=== PATIENT | female | born 1980 | race Caucasian/White ===

== ENCOUNTER 2018-05-10 12:25 | Inpatient (IN) | payer OTHER ==
[~2018-05-10] VITALS: Ht 167.6 cm; Wt 79.5 kg
[2018-05-10] MEDS ORDERED: ASPIRIN 81 MG CHEW PO STA (12:52)
--- NOTE | 2018-05-10 12:59 | EMERGENCY ROOM VISIT NOTE ---
History Report prepared by Ye: Kasi Aguilar Under the Supervision of: Dr. Shaka Gordon M.D. First contact with patient: 12:44 Chief Complaint: STROKE SYMPTOMS Stated Complaint: NUMB HANDS AND L SIDE OF FACE,DIF SPEAKING Nursing Triage Summary: left side of body went numb about noon. I was also having trouble finding my words. symptoms have since resolved. patient does have a hx of anxiety "that is not what is going on right now." patient denies any other symptoms currently History of Present Illness The patient is a 37 year old female who presents to the Emergency Room with complaints of left arm/face numbness and speech difficulty. The patient states at 11:45AM (x1 hour ago) she was at work when she developed left arm and facial numbness and tingling. She states she also had trouble with her speech stating it felt like she couldn't control or open her mouth. She states that during this she had no headache, CP, SOB, nausea/vomiting, or other concerns. She states that over the last x20 minutes she has noted the symptoms resolving stating she is 75% resolved and all she has now is slight numbness to the left side of her tongue and numbness by her left elbow. The patient notes she had similar complaints to this x1 month and 4 days ago (symptoms only lasted 10 minutes). The patient states she did recently change to a low-carb diet and denies any problems with sleeping. She denies any increases in stress. Source of History: patient Position: head, arm (left) Symptom Intensity: moderate Quality: tingling, numbness Timing: other (improving) Modifying Factors (Relieving): rest Associated Symptoms: No fevers, No chills, No headache, No diaphoresis, No chest pain, No SOB, No nausea, No vomiting Review of Systems See HPI for pertinent positives & negatives. A total of 10 systems reviewed and were otherwise negative. Constitutional: No fever, No chills Respiratory: No shortness of breath Cardiovascular: No chest pain Neurologic: + numbness/tingling Past Medical & Surgical Medical Problems: (1) Dental caries (2) Facial abscess (3) Stroke-like symptoms (4) Stroke-like symptoms Social History Smoking Status: Current Every Day Smoker Alcohol Use: occasionally Drug Use: none Occupation Status: employed Current/Historical Medications No Active Prescriptions or Reported Meds Allergies Coded Allergies: Shellfish (Verified Allergy, Severe, ANAPHYLAXIS, 05/10/18) Sulfa Antibiotics (Verified Allergy, Intermediate, Rash, 05/10/18) Physical Exam Vital Signs Date Time Temp Pulse Resp B/P (MAP) Pulse Ox O2 Delivery O2 Flow Rate FiO2 05/10/18 16:00 74 97 Room Air 05/10/18 15:30 67 106/71 96 Room Air 05/10/18 15:00 72 98 Room Air 05/10/18 14:43 88 16 100/70 97 Room Air 05/10/18 13:02 108 05/10/18 12:59 98 Room Air 05/10/18 12:44 93 20 108/63 97 Room Air 05/10/18 12:29 37.1 101 18 132/90 97 Room Air Physical Exam GENERAL: Somewhat anxious and tearful. HEENT: No acute trauma, normocephalic atraumatic, mucous membranes moist, no nasal congestion, no scleral icterus. NECK: No stridor, no adenopathy, no meningismus, trachea is midline. LUNGS: Clear to auscultation bilaterally, no wheeze, no rhonchi, breath sounds equal. HEART: Without murmurs gallops or rubs, regular rate and rhythm. ABDOMEN: Soft, nontender, bowel sounds positive, no hernias, no peritonitis. EXTREMITIES: No cyanosis or edema, full range of motion of all the joints without pain or difficulty, no signs for acute trauma. NEUROLOGIC: Oriented x 3, no acute motor or sensory deficits, no focal weakness. No cerebellar deficit or pronator drift. No speech slur or facial droop. SKIN: No rash, no jaundice, no diaphoresis. Medical Decision & Procedures ER Provider Diagnostic Interpretation: Radiology results as stated below per my review and radiologist interpretation: BRAIN COMBO FINDINGS: Lay Out Former localizer images demonstrate no gross abnormality. There is no restricted diffusion to suggest acute or subacute infarct. The midline structures including the corpus callosum, brainstem, optic chiasm, pituitary and pineal glands appear unremarkable the sagittal T1 series. No cerebellar tonsillar herniation. No acute intracranial hemorrhage, midline shift, abnormal extra- axial collections, hydrocephalus or intracranial mass. No significant parenchymal signal abnormalities. Major flow voids are patent. Orbits are symmetric and within normal limits. The mastoid air cells are clear. Mild mucoperiosteal thickening about the right maxillary sinus. The soft tissues and skull are unremarkable. There is no abnormal intra-axial or extra-axial enhancement. IMPRESSION: 1. No acute intracranial abnormality. 2. No acute infarction or abnormal enhancement. 3. Mild right maxillary sinus disease. HEAD WITHOUT CONTRAST (CT) FINDINGS: No acute intracranial hemorrhage, midline shift, intracranial mass, hydrocephalus, territorial ischemia or abnormal extra-axial collection.The calvarium is intact. The paranasal sinuses, mastoid air cells, and middle ear cavities are clear. IMPRESSION: No acute intracranial abnormality. Laboratory Results 05/10/18 13:05 Red Blood Count 4.22, Mean Corpuscular Volume 84.1, Mean Corpuscular Hemoglobin 29.4, Mean Corpuscular Hemoglobin Concent 34.9, Mean Platelet Volume 9.9, Neutrophils (%) (Auto) 63.8, Lymphocytes (%) (Auto) 25.1, Monocytes (%) (Auto) 7.9, Eosinophils (%) (Auto) 2.6, Basophils (%) (Auto) 0.4, Neutrophils # (Auto) 3.23, Lymphocytes # (Auto) 1.27, Monocytes # (Auto) 0.40, Eosinophils # (Auto) 0.13, Basophils # (Auto) 0.02 05/10/18 13:05 Test 05/10/18 12:52 05/10/18 13:05 05/10/18 15:16 Creatine Kinase MB Ratio (0-3.0) White Blood Count 5.06 K/uL (4.8-10.8) Red Blood Count 4.22 M/uL (4.2-5.4) Hemoglobin 12.4 g/dL (12.0-16.0) Hematocrit 35.5 % (37-47) Mean Corpuscular Volume 84.1 fL (80-100) Mean Corpuscular Hemoglobin 29.4 pg (25-34) Mean Corpuscular Hemoglobin Concent 34.9 g/dl (32-36) Platelet Count 204 K/uL (130-400) Mean Platelet Volume 9.9 fL (7.4-10.4) Neutrophils (%) (Auto) 63.8 % Lymphocytes (%) (Auto) 25.1 % Monocytes (%) (Auto) 7.9 % Eosinophils (%) (Auto) 2.6 % Basophils (%) (Auto) 0.4 % Neutrophils # (Auto) 3.23 K/uL (1.4-6.5) Lymphocytes # (Auto) 1.27 K/uL (1.2-3.4) Monocytes # (Auto) 0.40 K/uL (0.11-0.59) Eosinophils # (Auto) 0.13 K/uL (0-0.5) Basophils # (Auto) 0.02 K/uL (0-0.2) RDW Standard Deviation 43.5 fL (36.4-46.3) RDW Coefficient of Variation 14.3 % (11.5-14.5) Immature Granulocyte % (Auto) 0.2 % Immature Granulocyte # (Auto) 0.01 K/uL (0.00-0.02) Prothrombin Time 10.3 SECONDS (9.0-12.0) Prothromb Time International Ratio 1.0 (0.9-1.1) Activated Partial Thromboplast Time 25.5 SECONDS (21.0-31.0) Partial Thromboplastin Ratio 1.0 Anion Gap 11.0 mmol/L (3-11) Est Creatinine Clear Calc Drug Dose 107.5 ml/min Estimated GFR () 129.8 Estimated GFR (Non- 112.0 BUN/Creatinine Ratio 8.7 (10-20) Calcium Level 7.9 mg/dl (8.5-10.1) Magnesium Level 1.5 mg/dl (1.8-2.4) Creatine Kinase MB < 1.0 ng/ml (0.5-3.6) Troponin I < 0.015 ng/ml (0-0.045) Thyroid Stimulating Hormone (TSH) 0.973 uIu/ml (0.300-4.500) Human Chorionic Gonadotropin, Qual NEG (NEG) Vitamin B12 Level 654 pg/mL (211-911) Folate 12.42 ng/mL (>5.38) Medications Administered Medications (Trade) Dose Ordered Sig/Wm Route Start Time Stop Time Status Last Admin Dose Admin Aspirin (Aspirin Chew) 324 mg NOW STAT PO 05/10/18 12:52 05/10/18 12:57 DC 05/10/18 13:13 324 MG Magnesium Sulfate (Magnesium Sulfate 1gm / D5W) 2 gm NOW STAT IV 05/10/18 14:02 7/22/18 14:03 DC 05/10/18 14:43 2 GM Potassium Chloride (Klor-Con M10) 40 meq NOW STAT PO 05/10/18 14:02 05/10/18 14:03 DC 05/10/18 14:43 40 MEQ ECG Per My Interpretation Indication: other (left side numnbess) Rate (beats per minute): 76 Rhythm: normal sinus Findings: other (artifact present, no ST elevation, no PVCs) Medical Decision Ms. Escoto is a pleasant 37 year old female who reports to the ED today for left sided numbness and tingling x1 hour. During examination patient notes she is 75% improved with only mild numbness to her left elbow and tongue noted. Comprehensive neurological exam normal. Differential Diagnosis: TIA or CVA, Dysrhythmia, Electrolyte Imbalance, Thyroid Disorder, Intracranial Mass, MS, Intracranial Bleeding Orders: 1252: CBC w/ Differential, PTT, Prothormbin, Troponin, Test, EKG, CT Head, Neuro Check q15 minutes, Defensive Driving Instructor, Pulse Ox, Saline Lock, NPO, Partial Renal Profile, CKMB, Drug Profile, UA Clean Catch, TSH, Magnesium Level , ASA 325mg PO, MRI Brain Recheck: 1425: Patient is doing much better. She states she is 100% resolved and is asymptomatic There is no leukocytosis or worrisome anemia. No kidney failure. She does have a low potassium and her magnesium is low at 1.5. testing is negative. Brain CT shows no acute bleed or mass-effect. EKG shows a normal sinus rhythm, no acute ischemia. Cardiac enzyme testing 1 is not consistent with acute cardiac injury. Brain MRI does not show evidence for stroke, mass or MS. The patient appears to be in a euthyroid state. The patient was given oral aspirin. She received oral potassium and IV magnesium. The patient feels improved. Her neurologic exam is completely normal. Her symptoms have resolved. At this point, the cause for her presentation is unclear. This may have been a TIA, certainly a variant migraine is possible. Possibly, the low magnesium and potassium are responsible. Further workup is required. I spoke to the patient and case management. The on-call hospitalist was consulted. Medication Reconcilliation Current Medication List: was personally reviewed by me Blood Pressure Screening Patient's blood pressure: Normal blood pressure Consults Time Called: 0113 Consulting Physician: Dr. Weston ([facility] Hospitalist) Returned Call: [phone] Reviewed HPI, ROS, PE, and Results. Agrees to admit the patient. Impression Primary Impression: Stroke-like symptoms Additional Impressions: Left sided numbness Hypomagnesemia Hypokalemia Scribe Attestation The scribe's documentation has been prepared under my direction and personally reviewed by me in its entirety. I confirm that the note above accurately reflects all work, treatment, procedures, and medical decision making performed by me. Departure Information Dispostion Being Evaluated By Hospitalist Prescriptions No Active Prescriptions or Reported Meds Referrals Sania Goldsmith D.O. (PCP) Forms HOME CARE DOCUMENTATION FORM, IMPORTANT VISIT INFORMATION Patient Instructions My [facility] Stroke History Time Last Known Well 1 hour ago Stroke t-PA Criteria Reviewed Does NOT meet criteria for t-PA Reason t-PA Not Given Treatment not indicated Problem Qualifiers
[2018-05-10 13:28] LABS: BASO % 0.4 %; BASO ABS # 0.02 K/uL (0-0.2); EOS % 2.6 %; EOS ABS # 0.13 K/uL (0-0.5); HEMATOCRIT 35.5 % (37-47); HEMOGLOBIN 12.4 g/dL (12.0-16.0); IG# 0.01 K/uL (0.00-0.02); LYMPH % 25.1 %; LYMPH ABS # 1.27 K/uL (1.2-3.4); MEAN CELL VOLUME 84.1 fL (80-100); MEAN CORPUSCULAR HEMOGLOBIN 29.4 pg (25-34); MEAN CORPUSCULAR HGB CONC 34.9 g/dl (32-36); MEAN PLATELET VOLUME 9.9 fL (7.4-10.4); MONO % 7.9 %; NEUT % 63.8 %; NEUT ABS # 3.23 K/uL (1.4-6.5); PLATELET COUNT 204 K/uL (130-400); RED CELL DISTRIBUTION WIDTH CV 14.3 % (11.5-14.5); RED CELL DISTRIBUTION WIDTH SD 43.5 fL (36.4-46.3); WHITE BLOOD COUNT 5.06 K/uL (4.8-10.8)
--- NOTE | 2018-05-10 13:33 | DIAGNOSTIC IMAGING REPORT ---
HEAD WITHOUT CONTRAST (CT) CLINICAL HISTORY: 37 years-old Female with Stroke. Acute strokelike symptoms TECHNIQUE: Multiple axial CT images of the head were obtained without contrast. A dose lowering technique was utilized adhering to the principles of ALARA. CT DOSE: 638.56 mGycm COMPARISON: CT maxillofacial 10/01/2015. FINDINGS: No acute intracranial hemorrhage, midline shift, intracranial mass, hydrocephalus, territorial ischemia or abnormal extra-axial collection. The calvarium is intact. The paranasal sinuses, mastoid air cells, and middle ear cavities are clear. IMPRESSION: No acute intracranial abnormality. The above report was generated using voice recognition software. It may contain grammatical, syntax or spelling errors. Electronically signed by: Mack Sanderson M.D. 05/10/2018 1:32 PM Dictated Date/Time: 05/10/2018 1:31 PM
[2018-05-10 13:42] LABS: PTT PATIENT 25.5 SECONDS (21.0-31.0)
[2018-05-10 13:56] LABS: BLOOD UREA NITROGEN 6 mg/dl (7-18); CALCIUM 7.9 mg/dl (8.5-10.1); CARBON DIOXIDE 22 mmol/L (21-32); CKMB < 1.0 ng/ml (0.5-3.6); CREATININE 0.69 mg/dl (0.60-1.20); GLUCOSE 94 mg/dl (70-99); POTASSIUM 3.1 mmol/L (3.5-5.1); SODIUM 139 mmol/L (136-145)
[2018-05-10] MEDS ORDERED: GADAVIST IV PRN (14:00)
[2018-05-10] MEDS ORDERED: MAGNESIUM SULFATE 1GM / D5W 1 GM BAG IV STA (14:02)
[2018-05-10] MEDS ORDERED: POTASSIUM CHLORIDE 10 MEQ TABCR PO STA (14:02)
--- NOTE | 2018-05-10 14:28 | DIAGNOSTIC IMAGING REPORT ---
BRAIN COMBO HISTORY: 37 years-old Female stroke, tia symptoms, left sided acute strokelike symptoms with dysarthria and left-sided body numbness COMPARISON: CT head of same day TECHNIQUE: Multiplanar multisequence MRI the brain was obtained both with and without the use of 8 mL Gadavist FINDINGS: Head Custodian localizer images demonstrate no gross abnormality. There is no restricted diffusion to suggest acute or subacute infarct. The midline structures including the corpus callosum, brainstem, optic chiasm, pituitary and pineal glands appear unremarkable the sagittal T1 series. No cerebellar tonsillar herniation. No acute intracranial hemorrhage, midline shift, abnormal extra-axial collections, hydrocephalus or intracranial mass. No significant parenchymal signal abnormalities. Major flow voids are patent. Orbits are symmetric and within normal limits. The mastoid air cells are clear. Mild mucoperiosteal thickening about the right maxillary sinus. The soft tissues and skull are unremarkable. There is no abnormal intra-axial or extra-axial enhancement. IMPRESSION: 1. No acute intracranial abnormality. 2. No acute infarction or abnormal enhancement. 3. Mild right maxillary sinus disease. The above report was generated using voice recognition software. It may contain grammatical, syntax or spelling errors. Electronically signed by: Mack Sanderson M.D. 05/10/2018 2:26 PM Dictated Date/Time: 05/10/2018 2:23 PM
--- NOTE | 2018-05-10 15:56 | History and Physical ---
History & Physical Date & Time of Service: May 10, 2018 at 15:56 Chief Complaint: Numb Hands And L Side Of Face,Dif Speaking Primary Care Physician: Sania Goldsmith D.O. 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 Pt said that this morning she was at work when she developed left arm numbness and weakness with left facial numbness and tingling. She said that symptoms last about 20 minutes. She said that she had trouble to speak where she felt she had a hard time to feel or open her mouth. She said that by the time she got to the ER her symptoms were almost resolved. She said that she had the similar symptoms twice about 1 month ago and few days ago that lasted about 10 minutes. She denies any headache, blurry vision and dizziness during the episodes. She denies any history of migraine. Pt said that she had 3 miscarriages in the past and the most recent one was in November. Currently she said that she is back to her baseline with no chest pain , numbness, palpitation, dizziness, weakness, palpitation, dysuria and SOB. Past Medical/Surgical History Medical Problems: (1) Ankle pain (2) Dental abscess (3) Dental caries (4) Dental infection (5) Depression (6) Facial abscess (7) Facial cellulitis (8) Laceration of thumb, right (9) Pain, dental (10) Stroke-like symptoms (11) Stroke-like symptoms Social History Smoking Status: Current Every Day Smoker Drug Use: none Occupational Status: employed Allergies Coded Allergies: Shellfish (Verified Allergy, Severe, ANAPHYLAXIS, 05/10/18) Sulfa Antibiotics (Verified Allergy, Intermediate, Rash, 05/10/18) Home Medications No Active Prescriptions or Reported Meds Review of Systems Constitutional: + weakness, No fever, No chills Eyes: No eye pain, No discharge, No diplopia ENT: No hearing loss, No nasal symptoms, No sore throat Respiratory: No cough, No sputum, No shortness of breath Cardiovascular: No chest pain, No claudication, No palpitations Abdomen: No pain, No nausea, No vomiting Musculoskeletal: No calf pain Genitourinary - Female: No dysuria, No urinary urgency Neurologic: + weakness, + numbness/tingling, No memory loss, No vertigo Psychiatric: No substance abuse Endocrine: No fatigue Hematologic / Lymphatic: No abnormal bleeding/bruising Integumentary: No rash, No itch Physical Exam Vital Signs Date Time Temp Pulse Resp B/P (MAP) Pulse Ox O2 Delivery O2 Flow Rate FiO2 05/10/18 14:43 88 16 100/70 97 Room Air 05/10/18 13:02 108 05/10/18 12:59 98 Room Air 05/10/18 12:44 93 20 108/63 97 Room Air 05/10/18 12:29 37.1 101 18 132/90 97 Room Air General Appearance: WD/WN, no apparent distress Head: normocephalic, atraumatic Eyes: PERRL, EOMI, sclerae normal ENT: hearing grossly normal Neck: thyroid normal, no JVD, trachea midline Respiratory/Chest: lungs clear, normal breath sounds, no respiratory distress, no accessory muscle use Cardiovascular: regular rate, rhythm, no JVD Abdomen/GI: normal bowel sounds, non tender, soft Back: no CVA tenderness Extremities/Musculoskelatal: normal inspection, no calf tenderness 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/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: 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 tested, no motor/sensory deficits, alert, oriented x 3 Skin: warm/dry, no rash Diagnostics Laboratory Results Results Past 24 Hours Test 05/10/18 12:52 05/10/18 13:05 05/10/18 15:16 Range/Units Creatine Kinase MB Ratio 0-3.0 White Blood Count 5.06 4.8-10.8 K/uL Red Blood Count 4.22 4.2-5.4 M/uL Hemoglobin 12.4 12.0-16.0 g/dL Hematocrit 35.5 37-47 % Mean Corpuscular Volume 84.1 80-100 fL Mean Corpuscular Hemoglobin 29.4 25-34 pg Mean Corpuscular Hemoglobin Concent 34.9 32-36 g/dl Platelet Count 204 130-400 K/uL Mean Platelet Volume 9.9 7.4-10.4 fL Neutrophils (%) (Auto) 63.8 % Lymphocytes (%) (Auto) 25.1 % Monocytes (%) (Auto) 7.9 % Eosinophils (%) (Auto) 2.6 % Basophils (%) (Auto) 0.4 % Neutrophils # (Auto) 3.23 1.4-6.5 K/uL Lymphocytes # (Auto) 1.27 1.2-3.4 K/uL Monocytes # (Auto) 0.40 0.11-0.59 K/uL Eosinophils # (Auto) 0.13 0-0.5 K/uL Basophils # (Auto) 0.02 0-0.2 K/uL RDW Standard Deviation 43.5 36.4-46.3 fL RDW Coefficient of Variation 14.3 11.5-14.5 % Immature Granulocyte % (Auto) 0.2 % Immature Granulocyte # (Auto) 0.01 0.00-0.02 K/uL Prothrombin Time 10.3 9.0-12.0 SECONDS Prothromb Time International Ratio 1.0 0.9-1.1 Activated Partial Thromboplast Time 25.5 21.0-31.0 SECONDS Partial Thromboplastin Ratio 1.0 Sodium Level 139 136-145 mmol/L Potassium Level 3.1 3.5-5.1 mmol/L Chloride Level 106 98-107 mmol/L Carbon Dioxide Level 22 21-32 mmol/L Anion Gap 11.0 3-11 mmol/L Blood Urea Nitrogen 6 7-18 mg/dl Creatinine 0.69 0.60-1.20 mg/dl Est Creatinine Clear Calc Drug Dose 107.5 ml/min Estimated GFR () 129.8 Estimated GFR (Non- 112.0 BUN/Creatinine Ratio 8.7 10-20 Random Glucose 94 70-99 mg/dl Calcium Level 7.9 8.5-10.1 mg/dl Magnesium Level 1.5 1.8-2.4 mg/dl Creatine Kinase MB < 1.0 0.5-3.6 ng/ml Troponin I < 0.015 0-0.045 ng/ml Thyroid Stimulating Hormone (TSH) 0.973 0.300-4.500 uIu/ml Human Chorionic Gonadotropin, Qual NEG NEG Diagnostic Radiology BRAIN COMBO HISTORY: 37 years-old Female stroke, tia symptoms, left sided acute strokelike symptoms with dysarthria and left-sided body numbness COMPARISON: CT head of same day TECHNIQUE: Multiplanar multisequence MRI the brain was obtained both with and without the use of 8 mL Gadavist FINDINGS: Picture Hanger localizer images demonstrate no gross abnormality. There is no restricted diffusion to suggest acute or subacute infarct. The midline structures including the corpus callosum, brainstem, optic chiasm, pituitary and pineal glands appear unremarkable the sagittal T1 series. No cerebellar tonsillar herniation. No acute intracranial hemorrhage, midline shift, abnormal extra-axial collections, hydrocephalus or intracranial mass. No significant parenchymal signal abnormalities. Major flow voids are patent. Orbits are symmetric and within normal limits. The mastoid air cells are clear. Mild mucoperiosteal thickening about the right maxillary sinus. The soft tissues and skull are unremarkable. There is no abnormal intra-axial or extra-axial enhancement. IMPRESSION: 1. No acute intracranial abnormality. 2. No acute infarction or abnormal enhancement. 3. Mild right maxillary sinus disease. The above report was generated using voice recognition software. It may contain grammatical, syntax or spelling errors. Electronically signed by: Mack Sanderson M.D. 05/10/2018 2:26 PM Dictated Date/Time: 05/10/2018 2:23 PM HEAD WITHOUT CONTRAST (CT) CLINICAL HISTORY: 37 years-old Female with Stroke. Acute strokelike symptoms TECHNIQUE: Multiple axial CT images of the head were obtained without contrast. A dose lowering technique was utilized adhering to the principles of ALARA. CT DOSE: 638.56 mGycm COMPARISON: CT maxillofacial 10/01/2015. FINDINGS: No acute intracranial hemorrhage, midline shift, intracranial mass, hydrocephalus, territorial ischemia or abnormal extra-axial collection. The calvarium is intact. The paranasal sinuses, mastoid air cells, and middle ear cavities are clear. IMPRESSION: No acute intracranial abnormality. The above report was generated using voice recognition software. It may contain grammatical, syntax or spelling errors. Electronically signed by: Mack Sanderson M.D. 05/10/2018 1:32 PM Dictated Date/Time: 05/10/2018 1:31 PM Impression Assessment and Plan Stroke Like symptoms Present with Left arm numbness/weakness with left facial numbness associated with difficulty to speech CT head showed no acute intracranial abnormality MRI head showed no intracranial abnormality Received aspirin in the ER, will continue aspirin Will check b12, folate, RPR, lyme titer, lupus anticoagulant Will get carotid doppler u/s Neurology consult Will monitor in tele Multiple Miscarriages Follow with OB Will check antiphospholipid Tobacco abuse Counseling on smoking cessation Electrolytes Imbalance Mg and K replaced Monitor electrolytes DVT Px Pt ambulates CODE STATUS FULL CODE Resuscitation Status VTE Prophylaxis Will order VTE Prophylaxis: No Reason for no VTE drug order: Treatment not indicated (Pt ambulates) Reason no Mechanical VTE Order: Treatment not indicated (pt ambulates)
[2018-05-10] MEDS ORDERED: PHARMACIST DISCHARGE MED REC CONSULT PRN (16:00)
[2018-05-10] MEDS ORDERED: IV FLUIDS COMPLETED PRN (16:00)
[2018-05-10 17:00] VITALS: BP 110/78; PULSE 62; TEMP 37.5; O2SAT 97; Ht 167.6 cm; Wt 79.5 kg
[2018-05-10] MEDS ORDERED: SODIUM CHLORIDE 0.9% 1000ML 1,000 ML IV SCH (17:15)
--- NOTE | 2018-05-10 17:57 | DIAGNOSTIC IMAGING REPORT ---
BILATERAL CAROTID DOPPLER STUDY HISTORY: Stroke like symptoms COMPARISON: None. TECHNIQUE: Real-time, grayscale, and color Doppler sonography of the carotid arteries was performed. Imaging reviewed in the transverse and longitudinal planes. All measurements were calculated based on NASCET criteria. FINDINGS: Antegrade flow is seen in the bilateral vertebral arteries. The brachial pressures are hemodynamically similar. No significant atherosclerotic plaque. The peak systolic velocity within the right ICA is 92 cm/s. The right systolic ratio is 1. The peak systolic velocity within the left ICA is 68 cm/s. The left systolic ratio is 0.6. IMPRESSION: No hemodynamically significant stenosis seen within the carotid arteries. Electronically signed by: Brandon Duran M.D. 05/10/2018 5:55 PM Dictated Date/Time: 05/10/2018 5:55 PM
[2018-05-10 19:17] VITALS: BP 96/66; PULSE 74; TEMP 36.6; O2SAT 97
[2018-05-10 23:38] VITALS: BP 101/70; PULSE 71; TEMP 36.7; O2SAT 95
[2018-05-11] MEDS ORDERED: TRAMADOL HCL 50 MG TAB PO PRN (00:15)
[2018-05-11] MEDS ORDERED: ACETAMINOPHEN 325 MG TAB PO PRN (00:15)
[2018-05-11] MEDS ORDERED: ACETAMINOPHEN 325 MG TAB ONE (00:38)
[2018-05-11 03:38] VITALS: BP 94/61; PULSE 70; TEMP 36.6; O2SAT 96
[2018-05-11 07:45] VITALS: BP 99/68; PULSE 60; TEMP 36.5; O2SAT 96
[2018-05-11 09:15] LABS: HEMOGLOBIN A1C 4.6 % (4.5-5.6)
[2018-05-11 09:22] LABS: RAPID PLASMA REAGIN NONREACTIVE (NONREACT)
[2018-05-11] MEDS: ASPIRIN 81 MG ECTAB PO SCH (09:33)
[2018-05-11 12:02] VITALS: BP 93/64; PULSE 78; TEMP 36.9; O2SAT 96
--- NOTE | 2018-05-11 14:41 | Neurology Consultation ---
Neurology Consultation Date of Consultation: May 11, 2018. Attending Physician: Pelon Weston M.D. Primary Care Physician: Sania Goldsmith D.O. Reason for Consultation: stroke like symptoms History of Present Illness Source: patient, partner Christa is a 37 year old female PMH of multiple Miscarriages, present with left facial numbness dyphasia and numbness and tingling in her hands left > right. She was at work when she developed facial numbness and tingling and then into her hands. She said that symptoms last about 20 minutes. She could speak but she thought the word pronunciation was off. . She said that by the time she got to the ER her symptoms were almost resolved. She said that she had the similar symptoms twice about 1 month ago and few days ago that lasted about 10 minutes. She states she has had a right sided headache which she never has. She does not think this is anxiety related because she has had anxiety in the past and this is different. She states she has not been under any increased stress although she was crying when first being questioned. She had he last miscarriage in October and is still having bleeding from the miscarriage. She was not on aspirin prior to the event. She does not have a history of migraines. denies CP, SOB, abdominal pain, weakness, bowel or bladder issues, vision changes, swallowing issues, N, V. currently all symptoms have resolved. Past Medical/Surgical History Medical Problems: (1) Ankle pain Status: Acute (2) Dental abscess Status: Acute (3) Dental infection Status: Acute (4) Facial cellulitis Status: Acute (5) Hypokalemia Status: Acute (6) Hypomagnesemia Status: Acute (7) Laceration of thumb, right Status: Acute (8) Left sided numbness Status: Acute (9) Stroke-like symptoms Status: Acute Social History Smoking Status: Current every day smoker Smokeless Tobacco Use: No Drug Use: none Occupation Status: employed Allergies Coded Allergies: Shellfish (Verified Allergy, Severe, ANAPHYLAXIS, 05/10/18) Sulfa Antibiotics (Verified Allergy, Intermediate, Rash, 05/10/18) Current Inpatient Medications Current Inpatient Medications Medications (Trade) Dose Ordered Sig/Wm Route Start Time Stop Time Status Last Admin Dose Admin Gadobutrol (Gadavist) 8 mmol UD PRN IV 05/10/18 14:00 05/14/18 13:59 Miscellaneous Information (Pharmacist Discharge Med Rec Consult) 1 ea UD PRN N/A 05/10/18 16:00 06/09/18 15:59 Miscellaneous (Iv Fluids Completed) 1 ea PRN PRN N/A 05/10/18 16:00 05/10/19 15:59 Aspirin (Ecotrin Tab) 81 mg QAM PO 05/11/18 09:00 06/10/18 08:59 05/11/18 09:33 81 MG Acetaminophen (Tylenol Tab) 650 mg Q6H PRN PO 05/11/18 00:15 06/10/18 00:14 05/11/18 11:25 650 MG Tramadol HCl (Ultram Tab) 25 mg Q6H PRN PO 05/11/18 00:15 06/10/18 00:14 Physical Exam Vital Signs (Past 24 Hrs): Date Time Temp Pulse Resp B/P (MAP) Pulse Ox O2 Delivery O2 Flow Rate FiO2 05/11/18 12:02 36.9 78 18 93/64 (74) 96 Room Air 05/11/18 08:00 Room Air 05/11/18 07:45 36.5 60 16 99/68 (78) 96 Room Air 05/11/18 03:38 36.6 70 18 94/61 (72) 96 Room Air 05/10/18 23:59 Room Air 05/10/18 23:38 36.7 71 18 101/70 (80) 95 Room Air 05/10/18 19:17 36.6 74 18 96/66 (76) 97 05/10/18 17:00 37.5 62 16 110/78 97 Room Air 05/10/18 16:00 74 97 Room Air 05/10/18 15:30 67 106/71 96 Room Air 05/10/18 15:00 72 98 Room Air 05/10/18 14:43 88 16 100/70 97 Room Air Physical Exam: Constitutional: appearance nourished, healthy and normal Ears, Nose, Mouth and Throat: mucous membranes moist, no injection and skin normal, eyes normal Cardiovascular: normal S-1 and S-2 and regular rate and rhythm Respiratory: course breath sounds Musculoskeletal: no peripheral edema and good distal pulses Skin: no stigmata of neurocutaneous disease noted and normal and intact Eyes: extraocular muscles intact (EOMI) and pupils equal, round and reactive to light (PERRL) NEUROLOGIC EXAMINATION: Mental status: Alert and interactive Oriented to full date and location Oriented to person Speech fluent with no evidence of aphasia Cranial Nerves smile eye brow raise symmetric Reflexes: Deep tendon reflexes were symmetrical and graded 2/5. Plantar responses were flexor. Sensory: intact to light touch and vibration Coordination: Romberg absent Gait/Stance: Posture normal. Gait normal: with steady with steps, base, turning, tandem gait. Motor: Negative for pronator drift of out stretched arms with eyes closed. Strength: biceps triceps hand clinical data coordinator bilaterally 5/5, hip flex patellar and plantar flex ext 5/5 bilaterally Laboratory Results Past 24 Hours: Test 05/10/18 15:16 05/11/18 01:30 05/11/18 07:17 Vitamin B12 Level 654 pg/mL (211-911) Folate 12.42 ng/mL (>5.38) Rapid Plasma Reagin NONREACTIVE (NONREACT) Lyme Disease IgG Antibody NEG (NEG) Lyme Disease IgM Antibody NEG (NEG) Urine Color YELLOW Urine Appearance CLEAR (CLEAR) Urine pH 8.0 (4.5-7.5) Urine Specific [place] 1.007 (1.000-1.030) Urine Protein NEG (NEG) Urine Glucose (UA) NEG (NEG) Urine Ketones NEG (NEG) Urine Occult Blood NEG (NEG) Urine Nitrite NEG (NEG) Urine Bilirubin NEG (NEG) Urine Urobilinogen NEG (NEG) Urine Leukocyte Esterase NEG (NEG) Urine Opiates Screen NEG (NEG) Urine Methadone, Qualitative NEG (NEG) Urine Barbiturates NEG (NEG) Urine Phencyclidine (PCP) Level NEG (NEG) Ur Amphetamine/Methamphetamine NEG (NEG) MDMA (Ecstasy) Screen NEG (NEG) Urine Benzodiazepines Screen NEG (NEG) Urine Cocaine Metabolite NEG (NEG) Urine Marijuana (THC) NEG (NEG) Estimated Average Glucose 85 mg/dl Hemoglobin A1c 4.6 % (4.5-5.6) Magnesium Level 2.2 mg/dl (1.8-2.4) Triglycerides Level 105 mg/dl (0-150) Cholesterol Level 128 mg/dl (0-200) HDL Cholesterol 48 mg/dl LDL Cholesterol, Calculated 59 mg/dl VLDL Cholesterol, Calculated 21 mg/dl Cholesterol/HDL Ratio 2.[address] head- No acute intracranial abnormality. MRI combo- . No acute intracranial abnormality. No acute infarction or abnormal enhancement. Mild right maxillary sinus disease. carotid doppler- No hemodynamically significant stenosis seen within the carotid arteries. Impression 37 year old female with left facial numbness and tingling, bilateral hand numbness and tingling - resolved Plan 1. continue aspirin 81 mg at plavix 75 mg x 3 months then aspirin for life 2. headache - continue tylenol at this time 3. hypercoag state is pending - 3 miscarriages 4. MRI with no acute findings 5. carotid doppler - no significant stenosis 6. PT/OT for any discharge needs 7. smoking cessation - strongly urged 8. TTE- ordered 9. DL, DM, HTN - optimize LDL <70 10 CTA head and neck- order further recommendations to follow I have seen and discussed above patient with Dr Rosa Mejias, neurology Pt with recent miscarriage (hx 2 prior) with focal neurologic sx x 2 not associated with headache. Possible TIA. P CTA head and neck, TTE with bubble, Dual antiplt tx, Will likely need to see maternal - medicine as outpt re mult miscarriages and recent poss TIA for question abt potential future pregnancies and need for anticoagulant, antiplt tx at that time. Pt will need follow-up with us as outpt. ALINA Mejias MD
[2018-05-11 15:06] VITALS: BP 100/67; PULSE 73; TEMP 36.9; O2SAT 98
--- NOTE | 2018-05-11 15:16 | Progress Note ---
Medicine Progress Note Date & Time of Visit: May 11, 2018 at 15:04. Subjective Pt was seen and examined Lying in bed with no distress Pt said that she feels fine She said that she had a headache this morning She denies any weakness, numbness, chest pain and palpitation Objective Last 8 Hrs Date Time Temp Pulse Resp B/P (MAP) Pulse Ox O2 Delivery O2 Flow Rate FiO2 05/11/18 12:02 36.9 78 18 93/64 (74) 96 Room Air 05/11/18 08:00 Room Air 05/11/18 07:45 36.5 60 16 99/68 (78) 96 Room Air Physical Exam: General- No acute distress Head- atraumatic Eyes- PERRL, EOMI ENT- oropharynx clear Neck- supple, no JVD Lungs- clear to auscultation Heart- regular rhythm; no murmur Abdomen- normal bowel sounds, soft Extremities- no pretibial edema, no calf tenderness Neuro- alert, oriented x 3; PERRL, EOMI; no facial palsy; no dysarthria; motor 5 /5 bilaterally, finger to nose normal Skin- warm & dry Laboratory Results: Last 24 Hours Test 05/10/18 15:16 05/11/18 01:30 05/11/18 07:17 Vitamin B12 Level 654 pg/mL Folate 12.42 ng/mL Rapid Plasma Reagin NONREACTIVE Lyme Disease IgG Antibody NEG Lyme Disease IgM Antibody NEG Urine Color YELLOW Urine Appearance CLEAR Urine pH 8.0 Urine Specific [place] 1.007 Urine Protein NEG Urine Glucose (UA) NEG Urine Ketones NEG Urine Occult Blood NEG Urine Nitrite NEG Urine Bilirubin NEG Urine Urobilinogen NEG Urine Leukocyte Esterase NEG Urine Opiates Screen NEG Urine Methadone, Qualitative NEG Urine Barbiturates NEG Urine Phencyclidine (PCP) Level NEG Ur Amphetamine/Methamphetamine NEG MDMA (Ecstasy) Screen NEG Urine Benzodiazepines Screen NEG Urine Cocaine Metabolite NEG Urine Marijuana (THC) NEG Estimated Average Glucose 85 mg/dl Hemoglobin A1c 4.6 % Magnesium Level 2.2 mg/dl Triglycerides Level 105 mg/dl Cholesterol Level 128 mg/dl HDL Cholesterol 48 mg/dl LDL Cholesterol, Calculated 59 mg/dl VLDL Cholesterol, Calculated 21 mg/dl Cholesterol/HDL Ratio 2.7 Assessment & Plan Stroke Like symptoms Present with Left arm numbness/weakness with left facial numbness associated with difficulty to speech CT head showed no acute intracranial abnormality MRI head showed no intracranial abnormality Carotid u/s showed no significant stenosis seen within the carotid arteries. Received aspirin in the ER, will continue aspirin B12, folate, TSH, RPR, Lyme titer normal Lupus anticoagulant and Homocysteine marker pending No arrhythmia on tele monitor Neurology on board Case discussed with Neurology recommended to get a CTA head and Neck Will get an Echo Multiple Miscarriages Follow with OB antiphospholipid pending Tobacco abuse Counseling on smoking cessation Electrolytes Imbalance stable Monitor electrolytes DVT Px Pt ambulates CODE STATUS FULL CODE Disposition Will discharge home once stable from neurology standpoint Follow up with primary care provider Dr. Collazo (Dr. Goldsmith colleague) on 05/15 @ 12:45 in [place] Follow up with Neurology Consultants: Neuro Current Inpatient Medications: Current Inpatient Medications Medications (Trade) Dose Ordered Sig/Wm Route Start Time Stop Time Status Last Admin Dose Admin Gadobutrol (Gadavist) 8 mmol UD PRN IV 05/10/18 14:00 05/14/18 13:59 Miscellaneous Information (Pharmacist Discharge Med Rec Consult) 1 ea UD PRN N/A 05/10/18 16:00 06/09/18 15:59 Miscellaneous (Iv Fluids Completed) 1 ea PRN PRN N/A 05/10/18 16:00 05/10/19 15:59 Aspirin (Ecotrin Tab) 81 mg QAM PO 05/11/18 09:00 06/10/18 08:59 05/11/18 09:33 81 MG Acetaminophen (Tylenol Tab) 650 mg Q6H PRN PO 05/11/18 00:15 06/10/18 00:14 05/11/18 11:25 650 MG Tramadol HCl (Ultram Tab) 25 mg Q6H PRN PO 05/11/18 00:15 06/10/18 00:14
[2018-05-11] MEDS ORDERED: CLOPIDOGREL BISULFATE 75 MG TAB PO ONE (16:30)
[2018-05-11] MEDS ORDERED: OPTIRAY 320 IV PRN (16:30)
[2018-05-11 19:11] VITALS: BP 97/65; PULSE 69; TEMP 36.9; O2SAT 98
--- NOTE | 2018-05-11 20:11 | DIAGNOSTIC IMAGING REPORT ---
ANGIOGRAPHY HEAD COMBO HISTORY: Mental status change TECHNIQUE: Multiaxial CT images of the head were performed both before and after the intravenous administration of contrast to evaluate the major cerebral vessels. Maximum intensity projection images were also obtained. A dose lowering technique was utilized adhering to the principles of ALARA. COMPARISON: None. FINDINGS: There is no mass, hematoma, midline shift, or acute infarct. Visualized intracranial internal carotid arteries, distal vertebral arteries, and basilar artery are widely patent. There is no significant stenosis, occlusion, or aneurysm seen within the bilateral ACAs, MCAs, or level vial grinder. IMPRESSION: No significant stenosis, occlusion, or aneurysm within the [place]. The above report was generated using voice recognition software. It may contain grammatical, syntax or spelling errors. Electronically signed by: Jac Denney M.D. 05/11/2018 8:00 PM Dictated Date/Time: 05/11/2018 7:54 PM
--- NOTE | 2018-05-11 20:11 | DIAGNOSTIC IMAGING REPORT ---
NECK ANGIO WITH CONTRAST HISTORY: Stroke TECHNIQUE: Multiaxial CT images of the neck were performed following the intravenous administration of contrast to evaluate the major cervical vessels. Maximum intensity projection images were also obtained. All measurements were calculated based on NASCET criteria. A dose lowering technique was utilized adhering to the principles of ALARA. COMPARISON STUDY: None. FINDINGS: The aortic arch and proximal great vessels are widely patent. There is no significant stenosis, occlusion, or dissection identified within the bilateral common carotid, internal carotid, or vertebral arteries. IMPRESSION: No significant stenosis, occlusion, or dissection identified within the carotid or vertebral arteries. The above report was generated using voice recognition software. It may contain grammatical, syntax or spelling errors. Electronically signed by: Jac Denney M.D. 05/11/2018 8:04 PM Dictated Date/Time: 05/11/2018 8:00 PM
[2018-05-11 23:43] VITALS: BP 107/73; PULSE 72; TEMP 36.5; O2SAT 97
[2018-05-12 03:48] VITALS: BP 99/67; PULSE 66; TEMP 36.5; O2SAT 95
[2018-05-12 07:10] VITALS: BP 139/76; PULSE 61; TEMP 36.6; O2SAT 98
[2018-05-12 08:00] VITALS: O2SAT 99
[2018-05-12] MEDS: ASPIRIN 81 MG ECTAB PO SCH (08:06)
[2018-05-12] MEDS ORDERED: CLOPIDOGREL BISULFATE 75 MG TAB PO SCH (09:00)
--- NOTE | 2018-05-12 09:20 | ECHOCARDIOGRAM REPORT ---
*NOTICE TO RECEIVING [employer] This information is strictly Confidential and protected under [place] law. [place] law prohibits you from making any further disclosure of this information unless further disclosure is expressly permitted by the written consent of the person to whom it pertains or is authorized by law. A general authorization for the release of medical or other information is not sufficient for this purpose. Hospital accepts no responsibility if the information is made available to any other person, INCLUDING THE PATIENT. Interpretation Summary * Name: NEREIDA HARRIS Study Date: 05/12/2018 07:15 AM BP: 99/67 mmHg * Patient Location: 2\S\S241\S\1 HR: 69 * : 1980 (M/d/yyyy) Gender: Female Height: 61 in * Age: 37 yrs Ethnicity: [place] Weight: 175 lb * Ordering Physician: Rosa Mccormick * Referring Physician: Self, Referred * Performed By: Erendira Obando RCS * * Reason For Study: CEREBRAL ISCHEMIA / EMBOLUS * BSA: 1.8 m2 * -- Conclusions -- * Injection of contrast documented no interatrial shunt. * The interatrial septum is intact with no evidence for an atrial septal defect. * The left atrial size is normal. * Right atrial size is normal. * The left ventricle is normal in size. * Left ventricular systolic function is normal. * Ejection Fraction = 55-60%. * The right ventricular systolic function is normal. Procedure Details * A complete two-dimensional transthoracic echocardiogram was performed (2D, M-mode, Doppler and color flow Doppler). * A saline contrast injection was performed to assess for cardiac shunting. * The injection was performed through an intravenous line in the right arm. * The attending nurse who injected the saline contrast was SYEDA MELGAR, RN. * A total of 10 cc of agitated saline was given. Left Ventricle * The left ventricle is normal in size. * There is normal left ventricular wall thickness. * Left ventricular systolic function is normal. * Ejection Fraction = 55-60%. Right Ventricle * The right ventricle is grossly normal size. * The right ventricular systolic function is normal. Atria * The left atrial size is normal. * Right atrial size is normal. * Injection of contrast documented no interatrial shunt. * The interatrial septum is intact with no evidence for an atrial septal defect. Mitral Valve * The mitral valve anatomy is normal. * Significant mitral regurgitation is absent. Tricuspid Valve * The tricuspid valve anatomy is normal. * Significant tricuspid regurgitation is absent. Aortic Valve * The aortic valve is tricuspid. The leaflet thickness if normal. There is no aortic stenosis, and no significant insufficiency. * No hemodynamically significant valvular aortic stenosis. * There is no significant aortic regurgitation. Pulmonic Valve * The pulmonic valve is not well seen, but is grossly normal. * There is no significant pulmonary regurgitation. Great Vessels * The aortic root is not well visualized. Pericardium/Pleural * There is no pericardial effusion. MMode 2D Measurements and Calculations IVSd 1.2 cm IVSs 1.4 cm LVIDd 3.6 cm LVIDs 2.4 cm LVPWd 0.95 cm LVPWs 1.2 cm IVS/LVPW 1.2 FS 32.8 % EDV(Teich) 53.6 ml ESV(Teich) 20.3 ml EF(Teich) 62.2 % EDV(cubed) 45.8 ml ESV(cubed) 13.9 ml EF(cubed) 69.6 % % IVS thick 19.6 % % LVPW thick 29.8 % LV mass(C)d 115.8 grams LV mass(C)dI 64.9 grams/m\S\2 LV mass(C)s 94.9 grams LV mass(C)sI 53.2 grams/m\S\2 SV(Teich) 33.3 ml SI(Teich) 18.7 ml/m\S\2 SV(cubed) 31.9 ml SI(cubed) 17.9 ml/m\S\2 Ao root diam 2.4 cm Ao root area 4.6 cm\S\2 LA dimension 3.1 cm LA/Ao 1.3 LVOT diam 2.0 cm LVOT area 3.2 cm\S\2 LVAd ap4 31.3 cm\S\2 LVLd ap4 8.0 cm EDV(MOD-sp4) 98.1 ml EDV(sp4-el) 103.6 ml LVAs ap4 20.0 cm\S\2 LVLs ap4 6.8 cm ESV(MOD-sp4) 48.1 ml ESV(sp4-el) 49.7 ml EF(MOD-sp4) 50.9 % EF(sp4-el) 52.0 % LVAd ap2 31.9 cm\S\2 LVLd ap2 8.5 cm EDV(MOD-sp2) 98.0 ml EDV(sp2-el) 101.8 ml LVAs ap2 19.2 cm\S\2 LVLs ap2 7.0 cm ESV(MOD-sp2) 42.0 ml ESV(sp2-el) 44.5 ml EF(MOD-sp2) 57.2 % EF(sp2-el) 56.3 % LVLd %diff 5.3 % EDV(MOD-bp) 100.7 ml LVLs %diff 3.2 % ESV(MOD-bp) 45.8 ml EF(MOD-bp) 54.5 % SV(MOD-sp4) 49.9 ml SI(MOD-sp4) 28.0 ml/m\S\2 SV(MOD-sp2) 56.0 ml SI(MOD-sp2) 31.4 ml/m\S\2 SV(MOD-bp) 54.9 ml SI(MOD-bp) 30.8 ml/m\S\2 SV(sp4-el) 53.9 ml SI(sp4-el) 30.2 ml/m\S\2 SV(sp2-el) 57.3 ml SI(sp2-el) 32.1 ml/m\S\2 Doppler Measurements and Calculations MV E max [place] 92.2 cm/sec MV A max [place] 51.2 cm/sec MV E/A 1.8 MV P1/2t max [place] 100.6 cm/sec MV P1/2t 82.2 msec MVA(P1/2t) 2.7 cm\S\2 MV dec slope 358.2 cm/sec\S\2 MV dec time 0.24 sec Ao V2 max 109.1 cm/sec Ao max PG 4.8 mmHg Ao max PG (full) 10 mmHg MICHI(V,A) 2.8 cm\S\2 MICHI(V,D) 2.8 cm\S\2 LV V1 max PG 3.8 mmHg LV V1 max 97.1 cm/sec
[2018-05-12 10:56] VITALS: BP 92/60; PULSE 75; TEMP 36.7; O2SAT 98
--- NOTE | 2018-05-12 11:19 | Progress Note ---
Internal Med Progress Note Date of Service: May 12, 2018. Provider Documentation: SUBJECTIVE: The patient was seen and examined in telemetry unit She was admitted with strokelike symptoms with a history of recurrent miscarriage Her symptoms are completely resolved and relevant investigations came out to be unremarkable She denies to any symptoms as of today she wants to go home OBJECTIVE: Vital Signs-as noted below Exam: General-no apparent distress Eyes-normal ENT-normal Neck-supple Lungs-clear to auscultate bilaterally Heart-regular, no murmur appreciated Abdomen-benign, soft, no organomegaly, bowel sounds present Extremities-no edema Neuro-alert, awake and oriented 4 No focal neuro deficit Lab data as noted below. ASSESSMENT & PLAN: Stroke Like symptoms;;Resolved Present with Left arm numbness/weakness with left facial numbness associated with difficulty to speech CT of the head,MRI head showed no intracranial abnormality Carotid u/s showed no significant stenosis seen within the carotid arteries. CTA of the Neck and CTA of the head-negative ECHO:: * Injection of contrast documented no interatrial shunt. * The interatrial septum is intact with no evidence for an atrial septal defect. * The left atrial size is normal. * Right atrial size is normal. * The left ventricle is normal in size. * Left ventricular systolic function is normal. * Ejection Fraction = 55-60%. * The right ventricular systolic function is normal. Received aspirin in the ER, will continue aspirin B12, folate, TSH, RPR, Lyme titer normal Lupus anticoagulant and Homocysteine marker -Pending No arrhythmia on tele monitor Neurology on board -appreciate Input Multiple Miscarriages Follow with OB Antiphospholipid and Anticardiolipin pending Tobacco abuse Counseling on smoking cessation Electrolytes Imbalance stable Monitor electrolytes-normalized DVT Px Pt ambulates CODE STATUS FULL CODE Disposition Will discharge home once stable from neurology standpoint Follow up with primary care provider Dr. Collazo (Dr. Goldsmith colleague) on 05/15 @ 12:45 in [place] Follow up with Neurology Consultants: Neuro Likely to go home this afternoon Vital Signs: Date Time Temp Pulse Resp B/P (MAP) Pulse Ox O2 Delivery O2 Flow Rate FiO2 05/12/18 08:00 99 Room Air 05/12/18 07:10 36.6 61 20 139/76 (97) 98 Room Air 05/12/18 03:48 36.5 66 16 99/67 (78) 95 Room Air 05/11/18 23:43 36.5 72 18 107/73 (84) 97 Room Air 05/11/18 23:15 Room Air 05/11/18 19:15 Room Air 05/11/18 19:11 36.9 69 18 97/65 (76) 98 Room Air 05/11/18 15:06 36.9 73 16 100/67 (78) 98 Room Air 05/11/18 12:02 36.9 78 18 93/64 (74) 96 Room Air
[2018-05-12] MEDS ORDERED: PLV75 PO (15:56)
[2018-05-12] MEDS ORDERED: ASPI-461 PO (15:56)
--- NOTE | 2018-05-12 16:04 | Discharge Instructions ---
Discharge Instructions Date of Service May 12, 2018. Admission Reason for Admission: Stroke Like Symptoms Discharge Discharge Diagnosis / Problem: Stroke Like symptoms-resolved Discharge Goals Goal(s): Prevent Disease Progression Activity Recommendations Activity Limitations: resume your previous activity . Instructions / Follow-Up Instructions / Follow-Up Dr Collazo on 05/15/18 at 12:[address] Mejias on 06/08/18 at 7:45AM Risk Factors for Stroke: You can reduce your chances of stroke by working with your medical provider to adopt a healthy lifestyle. Some specific ways to lower your chance of stroke are: * If you are a smoker, now is the time to stop smoking cigarettes * If you are diabetic, improve the control of your blood sugars * Avoid excessive amounts of alcohol * Control high blood pressure * Lose weight if you are overweight * Be sure to lead an active lifestyle * Eat a healthy diet low in salt, cholesterol and fat You should know about other risk factors for stroke that you are unable to control. These include: * Age 55 years or older * Male gender * Certain racial groups: , or / * Family History of Stroke, Mini stroke or Heart Attack * Sickle Cell Disease Follow Up: It is important for you to keep your follow up appointments with your medical provider. Current Hospital Diet Patient's current hospital diet: Regular Diet Discharge Diet Recommended Diet: Regular Diet Pending Studies Studies pending at discharge: no Laboratory Results Hemoglobin A1c Test 05/11/18 07:17 Range/Units Estimated Average Glucose 85 mg/dl Hemoglobin A1c 4.6 4.5-5.6 % Lipid Panel Test 05/11/18 07:17 Range/Units Triglycerides Level 105 0-150 mg/dl Cholesterol Level 128 0-200 mg/dl HDL Cholesterol 48 mg/dl Cholesterol/HDL Ratio 2.7 LDL Cholesterol, Calculated 59 mg/dl Medical Emergencies . Who to Call and When: Medical Emergencies: Call 911 immediately if you experience any of the following warning signs and symptoms of Stroke: * Sudden numbness or weakness of the face, arm or leg, especially on one side of the body * Sudden confusion, trouble speaking or understanding * Sudden trouble seeing in one or both eyes * Sudden trouble walking, dizziness, loss of balance or coordination * Sudden severe headache with no cause Do not delay calling 911 if you experience any warning signs or symptoms of a stroke. Delay in seeking medical attention may affect what treatments can be given to you. . Non-Emergent Contact Non-Emergency issues call your: Primary Care Provider . Past History Medical & Surgical History: (1) Stroke-like symptoms . "Provider Documentation" section prepared by Liana Calles. . Stroke Core Measures Reason no t-PA for Stroke: Treatment not indicated Reason no antithrom by day 2: Treatment provided - N/A Reason no antithrom at D/C: Treatment provided - N/A Reason no statin at D/C: Treatment not indicated Reason no anticoag w/a fib: Treatment not indicated
[2018-05-12 16:20] VITALS: BP 92/60; PULSE 75; TEMP 36.7; O2SAT 98
--- NOTE | 2018-05-12 16:38 | Pharmacy Progress Note ---
Pharmacist Stroke Counseling Date of Service May 12, 2018. Scope Pharmacy has been consulted to provide medication discharge counseling for this patient admitted with ischemic stroke/hemorrhagic stroke/ transient ischemic attack as per the Pharmacist Discharge Counseling for Stroke Patients Protocol. Medications on Discharge New Medications: Aspirin (Aspirin) 81 Mg Tab 81 MG PO QAM for 30 Days, #30 TAB For 3 months Clopidogrel Bisulfate (Clopidogrel) 75 Mg Tab 75 MG PO QAM for 30 Days, #30 TAB Action The above medications, specifically ones for stroke treatment/prophylaxis, have been reviewed in detail with the patient and/or patient artists' booking representative(s) prior to discharge. This includes indication, common adverse reactions, drug interactions, and medication administration. Medication counseling has been employed using the teach-back method to ensure understanding. Outcome The patient and/or patient artists' booking representative(s) have demonstrated understanding of the medications. Please note, they are aware that the pharmacist will call them within 72 hours post-discharge to confirm that the appropriate medications are being taken and answer any further medication related questions the patient might have at that time. Contact information Individual to be contacted: Christa Escoto Relationship to patient (if applicable): Patient (self) Phone number: [phone] Best time to call: After 5:00 PM Additional comments: * Met with patient at bedside. She was not taking any medications prior to admission. She confirms she has insurance. Explained costs of Rx's should be minimal. Supplied her with a pillbox. Explained she can take any time of day that works best since once-daily dosing. Reviewed proper procedure for missed doses. * Patient aware to monitor for s/sx bleeding/bruising. Discuss with provider or report to ED if non-stop bleeding >15 minutes. * No statin indicated at this time due to LDL = 59 and patient age. * She understands need to f/u Neurology and continue medications as directed. DAPT (aspirin + Plavix) for 3 months, but Plavix monotherapy. * Recommended to purchase enteric coated aspirin; she is aware to look for low- dose, 81mg. * Patient reports using aspirin prn DANIELS. Advised to *avoid* NSAID's for headache /pain since she is on DAPT. Recommend to use Tylenol prn instead. She agrees. Thank you for allowing pharmacy to be involved in the care of this patient. Please call [phone] or [phone] with any additional questions
--- NOTE | 2018-05-13 08:37 | Discharge Summary ---
Discharge Summary Date of Service May 13, 2018. Discharge Summary Admission Date: May 10, 2018 at 15:54 Discharge Date: May 12, 2018 Discharge Disposition: Home Principal Diagnosis: Stroke Like symptoms-resolved,Possible TIA Secondary Diagnoses/Problems: Please see H&P and Hospital Progress note Consultations: Neuro Medication Reconciliation New Medications: Aspirin (Aspirin) 81 Mg Tab 81 MG PO QAM for 30 Days, #30 TAB For 3 months Clopidogrel Bisulfate (Clopidogrel) 75 Mg Tab 75 MG PO QAM for 30 Days, #30 TAB Admission Information HPI (per Admitting provider): 37 year old female PMH of multiple Miscarriages present to the Emergency Room with complaints of left arm weakness and numbness with left facial numbness associated with difficulty to speak. Pt said that this morning she was at work when she developed left arm numbness and weakness with left facial numbness and tingling. She said that symptoms last about 20 minutes. She said that she had trouble to speak where she felt she had a hard time to feel or open her mouth. She said that by the time she got to the ER her symptoms were almost resolved. She said that she had the similar symptoms twice about 1 month ago and few days ago that lasted about 10 minutes. She denies any headache, blurry vision and dizziness during the episodes. She denies any history of migraine. Pt said that she had 3 miscarriages in the past and the most recent one was in November. Currently she said that she is back to her baseline with no chest pain , numbness, palpitation, dizziness, weakness, palpitation, dysuria and SOB. 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 CTA of the Neck and CTA of the head-negative ECHO:: * Injection of contrast documented no interatrial shunt. * The interatrial septum is intact with no evidence for an atrial septal defect. * The left atrial size is normal. * Right atrial size is normal. * The left ventricle is normal in size. * Left ventricular systolic function is normal. * Ejection Fraction = 55-60%. * The right ventricular systolic function is normal. Received aspirin in the ER, will continue aspirin B12, folate, TSH, RPR, Lyme titer normal Lupus anticoagulant and Homocysteine marker -Pending No arrhythmia on tele monitor Neurology on board -appreciate Input Multiple Miscarriages Follow with OB Antiphospholipid and Anticardiolipin pending Tobacco abuse Counseling on smoking cessation Electrolytes Imbalance stable Monitor electrolytes-normalized DVT Px Pt ambulates CODE STATUS FULL CODE Disposition Will discharge home once stable from neurology standpoint Follow up with primary care provider Dr. Collazo (Dr. Goldsmith colleague) on 05/15 @ 12:45 in [place] Follow up with Neurology Consultants: Neuro Likely to go home this afternoon Total time spent on discharge = 35 minutes This includes examination of the patient, discharge planning, medication reconciliation, and communication with other providers. Discharge Instructions Date of Service May 12, 2018. Admission Reason for Admission: Stroke Like Symptoms Discharge Discharge Diagnosis / Problem: Stroke Like symptoms-resolved Discharge Goals Goal(s): Prevent Disease Progression Activity Recommendations Activity Limitations: resume your previous activity . Instructions / Follow-Up Instructions / Follow-Up Dr Collazo on 05/15/18 at 12:[address] Mejias on 06/08/18 at 7:45AM Risk Factors for Stroke: You can reduce your chances of stroke by working with your medical provider to adopt a healthy lifestyle. Some specific ways to lower your chance of stroke are: * If you are a smoker, now is the time to stop smoking cigarettes * If you are diabetic, improve the control of your blood sugars * Avoid excessive amounts of alcohol * Control high blood pressure * Lose weight if you are overweight * Be sure to lead an active lifestyle * Eat a healthy diet low in salt, cholesterol and fat You should know about other risk factors for stroke that you are unable to control. These include: * Age 55 years or older * Male gender * Certain racial groups: , or / * Family History of Stroke, Mini stroke or Heart Attack * Sickle Cell Disease Follow Up: It is important for you to keep your follow up appointments with your medical provider. Current Hospital Diet Patient's current hospital diet: Regular Diet Discharge Diet Recommended Diet: Regular Diet Pending Studies Studies pending at discharge: no Laboratory Results Hemoglobin A1c Test 05/11/18 07:17 Range/Units Estimated Average Glucose 85 mg/dl Hemoglobin A1c 4.6 4.5-5.6 % Lipid Panel Test 05/11/18 07:17 Range/Units Triglycerides Level 105 0-150 mg/dl Cholesterol Level 128 0-200 mg/dl HDL Cholesterol 48 mg/dl Cholesterol/HDL Ratio 2.7 LDL Cholesterol, Calculated 59 mg/dl Medical Emergencies . Who to Call and When: Medical Emergencies: Call 911 immediately if you experience any of the following warning signs and symptoms of Stroke: * Sudden numbness or weakness of the face, arm or leg, especially on one side of the body * Sudden confusion, trouble speaking or understanding * Sudden trouble seeing in one or both eyes * Sudden trouble walking, dizziness, loss of balance or coordination * Sudden severe headache with no cause Do not delay calling 911 if you experience any warning signs or symptoms of a stroke. Delay in seeking medical attention may affect what treatments can be given to you. . Non-Emergent Contact Non-Emergency issues call your: Primary Care Provider . Past History Medical & Surgical History: (1) Stroke-like symptoms . "Provider Documentation" section prepared by Liana Calles. . Stroke Core Measures Reason no t-PA for Stroke: Treatment not indicated Reason no antithrom by day 2: Treatment provided - N/A Reason no antithrom at D/C: Treatment provided - N/A Reason no statin at D/C: Treatment not indicated Reason no anticoag w/a fib: Treatment not indicated <Electronically signed by Liana Calles M.D.> Signed: 05/12/18 7042 Additional Copies To Sania Goldsmith D.O.
--- NOTE | 2018-05-14 14:09 | Pharmacy Progress Note ---
Pharmacist Post D/C Phone Note Medications Dose Route/Sig Max Daily Dose Days Date Category Dose Instructions Aspirin 81 Mg Tab 81 Mg PO QAM 30 05/12/18 Rx For 3 months Clopidogrel (Clopidogrel Bisulfate) 75 Mg Tab 75 Mg PO QAM 30 05/12/18 Rx Date of phone call: May 14, 2018. Individual with whom pharmacist spoke to: [Patient] The following questions were reviewed during the phone call with responses listed below each: Can you tell me the medications that you are currently taking as well as when and how you take each medication? - patient only taking plavix and aspirin - she was able to tell me these medications. Both were new medications on discharge - she was not on any medications prior When have you missed any doses of your medications? - she has not missed any doses What side effects are you having from your medications? - no side effects reported; did tell patient about monitoring for increase in bruising/bleeding What questions do you have about your medications? - no questions What problems are you having obtaining your medications? - no issues When is your next appointment with your primary care doctor? - she sees her PCP tomorrow for an appt Additional comments: Patient very knowledgeable about medications she is taking. States she is starting to feel better, just still a little tired. Talked about side effects/monitoring with the aspirin and plavix. Patient had no questions. As per the Pharmacist Discharge Counseling for Stroke Patients Protocol, this phone call has been completed within 72 hours of discharge. Thank you for allowing us to be involved in the care of this patient.
--- NOTE | 2018-05-19 07:09 | EDITING REQUIRED CODING QUERY ---
CODING QUERY To promote full compliance with coding requirements relating to patient care, provider participation is requested in all cases of member of the legislative council uncertainty. Please assist us with the question(s) below: Coding Question(s): Stroke-like symptoms are documented. The Neurology Consult on 05/11/18 mentions possible TIA. Please clarify below, in your clinical opinion. ( + ) Stroke-like Symptoms with possible TIA ( ) TIA is ruled-out and there are only Stroke-like Symptoms Physician's Response(s): Thank you Dayana Echeverria Principal Diagnosis: "_that condition established after study, to be chiefly responsible for occasioning the admission of the patient to the hospital for care." Co-Existing Principal Diagnosis: "_when two or more diagnoses equally meet the criteria for principal diagnosis as determined by the circumstances of admission, diagnostic work up, and/or therapy provided, and the Alphabetic Index, Tabular List, or another coding guideline does not provide sequencing direction, any one of the diagnoses may be sequenced first." "When the physician has documented what appears to be a current diagnosis in the body of the record, but has not included the diagnosis in the final diagnostic statement, the physician should be asked whether the diagnosis should be added." (Source [facility] 2 QTR90. p3-4)
== END 2018-05-12 17:00 | disposition home or self-care (01) | DRG 69 ==
LOC: C.EDB 12:25 → C.2T 15:54 → ENRESERV 16:03
PROVIDERS: ADMIT Internal Medicine; ATTEND Internal Medicine
DX: G45.9 Transient cerebral ischemic attack, unspecified (principal); E87.6 Hypokalemia; E83.42 Hypomagnesemia; R29.700 NIHSS score 0; R20.0 Anesthesia of skin; R47.9 Unspecified speech disturbances; F17.200 Nicotine dependence, unspecified, uncomplicated; Z87.59 Personal history of other complications of pregnancy, childbirth and the puerperium; Z88.2 Allergy status to sulfonamides; Z91.013 Allergy to seafood